=== PATIENT | male | born 1975 | race Hispanic/Latino ===

== ENCOUNTER 2018-07-04 07:05 | Emergency (ER) | payer SELFPAY ==
[2018-07-04] MEDS ORDERED: NA CHLORIDE 0.9% 1,000 ML ONE (07:38)
[2018-07-04 07:51] LABS: Absolute Lymphocytes (CBC) 1.9 K/uL (0.7-4.9); Absolute Neutrophil 7.4 K/uL (1.8-8.0); Basophils % 0.6 % (0-1.3); Hematocrit 48.4 % (39.6-49.0); Lymphocytes % 17.8 % (15.3-44.8); MCH 30.2 pg (27.0-35.0); MCV 86.9 fL (80-100); MPV 9.7 fL (7.6-11.3); RBC Red Blood Cell Count 5.57 M/uL (4.33-5.43)
--- NOTE | 2018-07-04 08:30 | RAD REPORT ---
EXAM DESCRIPTION: RAD - Chest Pa And Lat (2 Views) - 07/04/2018 7:42 am CLINICAL HISTORY: Cough;Congestion Chest pain. COMPARISON: No comparisons FINDINGS: The lungs are clear. The heart is normal in size. No displaced fractures. IMPRESSION: No acute or concerning finding suspected.
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
== END 2018-07-04 08:57 | disposition home or self-care (01) ==
LOC: ER 07:05
DX: B34.9 Viral infection, unspecified (principal); T24.111A Burn of first degree of right thigh, initial encounter; X15.8XXA Contact with other hot household appliances, initial encounter; Y93.9 Activity, unspecified; Y92.9 Unspecified place or not applicable; F17.210 Nicotine dependence, cigarettes, uncomplicated
CPT/HCPCS: 36415; 71046; 80048; 85025; 86308; 87070; 87081; 87804; 96360; 99284; J7030